=== PATIENT | female | born 1965 | race Caucasian/White ===

== ENCOUNTER → 2017-05-07 | Outpatient (CLI) | payer BC, OTHER ==
--- NOTE | 2017-05-12 17:43 | PCVCIMAG ---
APPROVED REPORT Exam: Stress Echocardiogram Indication: Chest pain Patient Location: Echo lab Stress Nurse: Carrol Almanza RN Status: routine HR: 77 bpm Rhythm: NSR Medical History Medical History: chest pain,cough x 3 mo Cardiac Risk Factors: none Previous Cardiac Procedures: none Pretest Chest Pain Characteristics: No chest pain Exercise History: Physically active Procedure The patient underwent an Exercise Stress Test using the Kalin Protocol. Blood pressure, heart rate, and EKG were monitored. An Echocardiogram was performed by compounding technician in four stages in quad fashion. At peak stress, four selected images were obtained and placed side by side with resting images for comparison. Stress Test Details HR Resting HR: 77 bpmMax Heart Rate (APMHR): 170 bpm Max HR Achieved: 176 bpmTarget HR (85% APMHR): 144 bpm % of APMHR: 103 Recovery HR: 78 bpm HR response to stress: Normal HR response to stress BP Resting BP: 122/74 mmHg Max BP: 156/72 mmHg Recovery BP: 128/74 mmHg ECG Resting ECG: Sinus Rhythm Stress ECG: Sinus Rhythm ST Change: Non-ischemic Maximum ST Deviation: 0.15 mm Arrhythmia: None Recovery ECG: Sinus Rhythm Recovery ST Change: Normal Recovery ST Deviation: 0.5 mm Recovery Arrhythmia: None Clinical Reason for Termination: Maximal effort Stress Symptoms: none Exercise duration: 12 min 38 sec Highest Stage Achieved: Stage 5: 5.0 mph at 18% grade. Exercise capacity: 15.8 METs Overall Exercise Capacity for Age: Excellent Angina Score: None Stress ECG Conclusion The patient exercised according to the KALIN protocol for12:38 minutes, achieving a work level of Max. METS: 15.8 The resting heart rate of 77 bpm leeanna to a maximal heart rate of 176 This value represents 103% of the maximal, age-predicted heart rate. The resting blood pressure of 122/74 mmHg, leeanna to a maximum blood pressure of 156/72 The exercise test was stopped due to fatigue. Delgado Treadmill Score is 11.3 which is Low risk. Pre-Stress Echo The resting Echocardiogram showed normal left ventricular contractility with an estimated Ejection Fraction of about 55-60%. Normal wall motion in all segments on baseline images. Post-Stress Echo The stress Echocardiogram showed normal left ventricular contractility with an estimated Ejection Fraction of about 65-70%. Normal augmentation of wall motion in all segments on post stress images. Clinical No clinical or ECG evidence for ischemia. Conclusion Clinical Response: Non-ischemic Exercise Capacity: Superior Stress ECG Response: Non-ischemic Stress Echo Images: Non-ischemic No clinical, EKG or echocardiographic evidence for ischemia. No echocardiographic evidence for exercise induced ischemia. Normal stress echocardiogram with maximal exercise stress. <Conclusion> No clinical, EKG or echocardiographic evidence for ischemia. No echocardiographic evidence for exercise induced ischemia. Normal stress echocardiogram with maximal exercise stress.
== END | disposition home or self-care (01) ==
LOC: PCVCIMAG 15:24
PROVIDERS: ATTEND Internal Medicine
DX: R07.9 Chest pain, unspecified (principal); E78.00 Pure hypercholesterolemia, unspecified; E78.5 Hyperlipidemia, unspecified
CPT/HCPCS: 93325; 93351